=== PATIENT | male | born 1950 | race Caucasian/White ===

== ENCOUNTER → 2024-06-18 | Outpatient (CLI) | payer MEDICARE, OTHER | LOC: RAD 09:13 | DX: S27.0XXD Traumatic pneumothorax, subsequent encounter (principal); X58.XXXD Exposure to other specified factors, subsequent encounter ==

== ENCOUNTER → 2024-06-19 | Outpatient (CLI) | payer MEDICARE, OTHER | LOC: RAD 08:36 | DX: S27.0XXD Traumatic pneumothorax, subsequent encounter (principal) ==

== ENCOUNTER → 2024-12-31 | Outpatient (CLI) | payer MEDICARE, OTHER ==
[2024-12-31 10:38] LABS: HEMATOCRIT 40.8 % (42.0-52.0); HEMOGLOBIN 13.6 g/dL (13.5-18.0); MEAN PLATELET VOLUME 9.1 fl (7.4-10.4); RED BLOOD COUNT 4.39 M/mm3 (4.20-5.60); RED CELL DISTRIBUTION WIDTH 12.5 % (11.5-14.5); WHITE BLOOD COUNT 6.6 K/mm3 (4.8-10.8)
[2024-12-31 10:47] LABS: ALBUMIN 4.5 g/dL (3.4-4.8)
[2024-12-31 10:49] LABS: TOTAL PROTEIN 7.9 g/dL (6.2-8.1)
[2024-12-31 10:51] LABS: TOTAL BILIRUBIN 1.2 mg/dL (0.2-1.2)
[2024-12-31 10:56] LABS: MAGNESIUM 2.07 mg/dL (1.60-2.60)
[2025-01-01 00:04] LABS: FOLATE (FOLIC ACID) 15.1 ng/mL (2.0-20.0)
[2025-01-01 00:53] LABS: HEPATITIS C VIRUS ANTIBODY Nonreactive (Nonreactiv)
== END ==
LOC: LAB 10:25
PROVIDERS: Family Medicine
DX: Z12.5 Encounter for screening for malignant neoplasm of prostate (principal); Z11.59 Encounter for screening for other viral diseases; Z13.220 Encounter for screening for lipoid disorders; G31.84 Mild cognitive impairment of uncertain or unknown etiology